=== PATIENT | female | born 1995 | race African-American/Black ===

== ENCOUNTER 2019-02-08 09:26 | Inpatient (IN) ==
[2019-02-08] MEDS ORDERED: Famotidine 20 MG/2 ML VIAL IVP ONE (09:44)
[2019-02-08] MEDS ORDERED: Metoclopramide 10 MG/2 ML VIAL IVP ONE (09:44)
[2019-02-08] MEDS ORDERED: CeFAZolin Syr 3,000MG/30 ML 3,000 MG/30 ML SYRINGE IVPB ONE (09:44)
[2019-02-08] MEDS ORDERED: Ringers Solution, Lactated 1,000 ML IVC ONE (09:44)
[2019-02-08] MEDS ORDERED: Oxytocin 20 units/ LR 1000 mL 20 UNIT/1,000 ML BAG IVC ONE (09:44)
[2019-02-08] MEDS ORDERED: Ringers Solution, Lactated 1,000 ML IVC SCH (09:45)
[2019-02-08] MEDS ORDERED: Oxytocin 20 units/ LR 1000 mL 20 UNIT/1,000 ML BAG IVC SCH ×2 (09:45→17:04)
[2019-02-08 10:24] LABS: Basophils % 0.2 %; Eosinophils # 0.1 K/mcL (0.0-0.6); Eosinophils % 0.8 %; Hematocrit 35.7 % (35.3-44.9); Hemoglobin 11.3 g/dL (11.5-15.4); Immature Granulocytes % 0.7 % (0-4); Lymphocytes # 2.3 K/mcL (0.6-4.6); Lymphocytes % 18.4 %; Mean Corpuscular HGB Conc 31.7 g/dL (31.6-35.5); Mean Corpuscular Hemoglobin 24.6 pg (28.0-33.3); Mean Corpuscular Volume 77.6 fL (83.0-100.0); Mean Platelet Volume 10.5 fL (9.4-12.4); Monocytes # 0.7 K/mcL (0.0-1.3); Monocytes % 5.8 %; Neutrophils # 9.4 K/mcL (1.6-8.9); Platelet Count 308 K/mcL (140-400); Red Cell Distribution Width 13.8 % (11.5-14.5); Segmented Neutrophils % 74.1 %; White Blood Count 12.7 K/mcL (4.3-11.1)
[2019-02-08] MEDS ORDERED: Ringers Solution, Lactated 1,000 ML ONE (10:29)
[2019-02-08] MEDS ORDERED: *HR* Phenylephrine 10 MG/ML VIAL ONE (10:29)
[2019-02-08] MEDS ORDERED: *HR* Oxytocin 10 UNIT/ML VIAL IM ONE (10:29)
[2019-02-08] MEDS ORDERED: *HR* FentaNYL (PF) 100 MCG/2 ML VIAL ONE ×2 (10:30→12:21)
[2019-02-08] MEDS ORDERED: *HR* Morphine Sulfate/PF 10 MG/10 ML AMPUL ONE (10:30)
[2019-02-08] MEDS ORDERED: EPHEDrine 50 MG/ML VIAL ONE (10:31)
[2019-02-08 10:34] LABS: Amphetamine Screen,Urine Negative ng/mL (Cutoff=1000); Barbiturate Screen,Urine Negative ng/mL (Cutoff=200); Benzodiazepines Screen,Urine Negative ng/mL (Cutoff=200); Cannabinoid Screen,Urine Negative ng/mL (Cutoff = 50); Cocaine Screen,Urine Negative ng/mL (Cutoff= 300); Opiate Screen,Urine Negative ng/mL (Cutoff=300); Phencyclidine Screen,Urine Negative ng/mL (Cutoff=25)
[2019-02-08] MEDS ORDERED: *HR* Midazolam HCl 2 MG/2 ML VIAL ONE (11:07)
[2019-02-08] MEDS ORDERED: Ondansetron 4 MG/2 ML VIAL ONE (11:34)
[2019-02-08] MEDS ORDERED: *HR* Labetalol 20 MG/4 ML SYRINGE IVP ONE (12:42)
[2019-02-08 14:19] LABS: Alanine Aminotransferase 12 Units/L (7-52); Aspartate Amino Transferase 15 Units/L (13-39); BUN/Creatinine Ratio 11 (6-26); Blood Urea Nitrogen 7 mg/dL (6-20); Lactate Dehydrogenase 163 Units/L (140-271); Uric Acid 5.6 mg/dL (2.3-7.6); eGFR For African Americans > 60 (> 60); eGFR For Non-African Americans > 60 (> 60)
[2019-02-08] MEDS ORDERED: Ondansetron 4 MG/2 ML VIAL IVP PRN (17:04)
[2019-02-08] MEDS ORDERED: Sennosides 8.6 MG TABLET PO PRN (17:04)
[2019-02-08] MEDS ORDERED: Simethicone 80 MG TAB.CHEW PO PRN (17:04)
[2019-02-08] MEDS ORDERED: Metoclopramide 10 MG/2 ML VIAL IVP PRN (17:04)
[2019-02-08] MEDS ORDERED: Rho Immune Globulin 1,500 UNIT SYRINGE IM ONE (17:04)
[2019-02-08] MEDS ORDERED: *HR* Nalbuphine 10 MG/ML AMPUL IV PRN (19:43)
[2019-02-08] MEDS: Ibuprofen 600 MG TABLET PO PRN (22:04)
[2019-02-09] MEDS: Ibuprofen 600 MG TABLET PO PRN ×3 (05:31→21:29)
[2019-02-09 05:54] LABS: Basophils % 0.2 %; Eosinophils % 0.2 %; Hematocrit 31.5 % (35.3-44.9); Hemoglobin 9.9 g/dL (11.5-15.4); Immature Granulocytes % 0.5 % (0-4); Lymphocytes # 1.6 K/mcL (0.6-4.6); Lymphocytes % 9.9 %; Mean Corpuscular HGB Conc 31.4 g/dL (31.6-35.5); Mean Corpuscular Hemoglobin 24.4 pg (28.0-33.3); Mean Corpuscular Volume 77.8 fL (83.0-100.0); Mean Platelet Volume 10.7 fL (9.4-12.4); Monocytes # 1.2 K/mcL (0.0-1.3); Monocytes % 7.3 %; Neutrophils # 13.1 K/mcL (1.6-8.9); Platelet Count 260 K/mcL (140-400); Red Blood Count 4.05 M/mcL (3.82-4.97); Red Cell Distribution Width 13.8 % (11.5-14.5); Segmented Neutrophils % 81.9 %
[2019-02-09] MEDS ORDERED: Rho Immune Globulin 1,500 UNIT SYRINGE IM ONE (08:14)
[2019-02-09] MEDS: Prenatal Vit/FA 1 EACH TABLET PO SCH (08:17)
[2019-02-09] MEDS ORDERED: NON-FORMULARY MEDICATION 1 EACH EACH (Prenatal Vitamin Tablet 1 TAB) PO SCH (09:00)
[2019-02-09] MEDS: *HR* OxyCODONE/APAP 5/325 TABLET PO PRN (11:37)
[2019-02-09 22:14] VITALS: BP 115/70
[2019-02-10] MEDS: Ibuprofen 600 MG TABLET PO PRN (08:20)
[2019-02-10] MEDS: Prenatal Vit/FA 1 EACH TABLET PO SCH (08:20)
[2019-02-10] MEDS: *HR* OxyCODONE/APAP 5/325 TABLET PO PRN (09:26)
== END 2019-02-10 11:16 | disposition home or self-care (01) | DRG 787 ==
LOC: 1NENULAB 09:26 → 1NENUOBS 16:21
PROVIDERS: ADMIT Obstetrics & Gynecology; ATTEND Obstetrics & Gynecology

== ENCOUNTER 2020-05-09 08:01 | Observation (INO) ==
[2020-05-09] MEDS ORDERED: 0.9 % Sodium Chloride 1,000 ML IVC ONE (08:08)
[2020-05-09 08:34] LABS: Basophils % 0.3 %; Eosinophils # 0.1 K/mcL (0.0-0.6); Eosinophils % 1.2 %; Hematocrit 38.8 % (35.3-44.9); Hemoglobin 12.4 g/dL (11.5-15.4); Immature Granulocytes % 0.3 % (0-4); Lymphocytes # 2.1 K/mcL (0.6-4.6); Mean Corpuscular Volume 78.2 fL (83.0-100.0); Mean Platelet Volume 9.5 fL (9.4-12.4); Monocytes # 0.5 K/mcL (0.0-1.3); Monocytes % 5.2 %; Neutrophils # 5.9 K/mcL (1.6-8.9); Platelet Count 291 K/mcL (140-400); Red Blood Count 4.96 M/mcL (3.82-4.97); Red Cell Distribution Width 15.2 % (11.5-14.5); White Blood Count 8.6 K/mcL (4.3-11.1)
[2020-05-09 08:36] LABS: Bilirubin,Urine Negative (Negative); Blood,Urine Moderate (Negative); Clarity,Urine Clear (Clear); Color,Urine Yellow (Yellow); Glucose,Urine (UA) Normal (Normal); Ketones,Urine Negative (Negative); Leukocyte Esterase,Urine Negative (Negative); Nitrite,Urine Negative (Negative); PH,Urine 7.5 pH Units (5.0-8.0); Protein,Urine Negative (Neg-Trace); Specific Gravity,Urine 1.015 (1.010-1.025); Urobilinogen,Urine Normal (Normal)
[2020-05-09 08:43] LABS: Bacteria,Urine Few per hpf (None-Few); RBC,Urine 0-3 per hpf (0-3); Squamous Epithelial Cell,Urine Few per hpf (None-Few); WBC,Urine 0-3 per hpf (0-3)
[2020-05-09 08:54] LABS: BUN/Creatinine Ratio 12 (6-26); Blood Urea Nitrogen 6 mg/dL (6-20); Calcium 9.4 mg/dL (8.6-10.3); Carbon Dioxide 22 mEq/L (23-29); Chloride 106 mEq/L (98-107); Glucose 97 mg/dL (70-105); Osmolality,Calculated 280 (280-300); Potassium 3.8 mEq/L (3.5-5.1); Sodium 136 mEq/L (136-145); eGFR For African Americans > 60 (> 60); eGFR For Non-African Americans > 60 (> 60)
[2020-05-09] MEDS ORDERED: *HR* OxyCODONE/APAP 5/325 TABLET PO ONE (10:01)
[2020-05-09] MEDS ORDERED: Rho Immune Globulin 1,500 UNIT SYRINGE IM ONE ×2 (11:08→13:46)
[2020-05-09 11:37] VITALS: BP 123/79
[2020-05-09] MEDS ORDERED: Ondansetron 4 MG/2 ML VIAL IVP PRN (11:51)
[2020-05-09] MEDS ORDERED: Ibuprofen 600 MG TABLET PO PRN (11:51)
[2020-05-09] MEDS ORDERED: Ringers Solution, Lactated 1,000 ML ONE (14:22)
[2020-05-09] MEDS ORDERED: Ringers Solution, Lactated 1,000 ML IVC SCH (14:30)
[2020-05-09] MEDS ORDERED: *HR* OxyCODONE Immed Rel 5 MG TABLET PO PRN (15:14)
[2020-05-09] MEDS ORDERED: *HR* Promethazine 25 MG/ML VIAL IVP PRN (15:14)
[2020-05-09] MEDS ORDERED: *HR* Midazolam HCl 2 MG/2 ML VIAL ONE (16:39)
[2020-05-09] MEDS ORDERED: *HR* Propofol 200 MG/20 ML VIAL IVP ONE (16:40)
[2020-05-09] MEDS ORDERED: *HR* FentaNYL (PF) 100 MCG/2 ML VIAL ONE (16:40)
[2020-05-09] MEDS ORDERED: Lidocaine -MPF 2% 5 ML VIAL ONE (16:41)
[2020-05-09] MEDS ORDERED: *HR* Succinylcholine 200 MG/10 ML VIAL IVP ONE (16:41)
[2020-05-09] MEDS ORDERED: Ketorolac 30 MG/ML VIAL ONE (17:03)
[2020-05-09] MEDS ORDERED: Ondansetron 4 MG/2 ML VIAL ONE (17:04)
[2020-05-09] MEDS ORDERED: Dexamethasone 4 MG/ML VIAL ONE (17:04)
[2020-05-09] MEDS ORDERED: Acetaminophen IV 1,000 MG/100 ML INFUS..BTL ONE (17:38)
[2020-05-09] MEDS ORDERED: Methylergonovine 0.2 MG/ML AMPUL IM ONE (19:34)
== END 2020-05-09 19:35 | disposition home or self-care (01) ==
LOC: EMEROOARM 08:01 → 1NENULAB 08:01
PROVIDERS: ADMIT Obstetrics & Gynecology; ATTEND Obstetrics & Gynecology

== ENCOUNTER 2020-05-10 22:06 | Observation (INO) ==
[2020-05-10 22:31] LABS: Basophils % 0.2 %; Eosinophils % 0.3 %; Hematocrit 27.9 % (35.3-44.9); Immature Granulocytes % 0.4 % (0-4); Lymphocytes # 1.7 K/mcL (0.6-4.6); Mean Corpuscular HGB Conc 31.5 g/dL (31.6-35.5); Mean Corpuscular Hemoglobin 25.1 pg (28.0-33.3); Mean Corpuscular Volume 79.5 fL (83.0-100.0); Mean Platelet Volume 9.7 fL (9.4-12.4); Monocytes # 0.6 K/mcL (0.0-1.3); Monocytes % 4.7 %; Neutrophils # 10.3 K/mcL (1.6-8.9); Platelet Count 228 K/mcL (140-400); Red Blood Count 3.51 M/mcL (3.82-4.97); Red Cell Distribution Width 15.2 % (11.5-14.5); Segmented Neutrophils % 81.4 %; White Blood Count 12.7 K/mcL (4.3-11.1)
[2020-05-10 22:32] LABS: Hemoglobin 8.8 g/dL (11.5-15.4)
[2020-05-10 22:41] LABS: INR 1.1; Prothrombin Time 12.1 Seconds (9.4-12.1)
[2020-05-10 22:55] LABS: BUN/Creatinine Ratio 17 (6-26); Blood Urea Nitrogen 8 mg/dL (6-20); Calcium 8.2 mg/dL (8.6-10.3); Carbon Dioxide 22 mEq/L (23-29); Chloride 108 mEq/L (98-107); Glucose 128 mg/dL (70-105); Osmolality,Calculated 290 (280-300); Potassium 3.5 mEq/L (3.5-5.1); Sodium 140 mEq/L (136-145); eGFR For African Americans > 60 (> 60); eGFR For Non-African Americans > 60 (> 60)
[2020-05-11] MEDS ORDERED: miSOPROStoL 100 MCG TABLET PO ONE (00:54)
[2020-05-11] MEDS ORDERED: Ondansetron 4 MG/2 ML VIAL IVP PRN (04:58)
[2020-05-11] MEDS ORDERED: Naloxone 0.4 MG/ML INJ IVP PRN (04:58)
[2020-05-11] MEDS ORDERED: Ringers Solution, Lactated 1,000 ML IVC SCH (05:00)
[2020-05-11] MEDS ORDERED: Ringers Solution, Lactated 1,000 ML IVC ONE (05:00)
[2020-05-11 05:05] VITALS: BP 111/72
[2020-05-11 06:01] LABS: Basophils % 0.4 %; Eosinophils # 0.1 K/mcL (0.0-0.6); Eosinophils % 0.7 %; Hematocrit 28.8 % (35.3-44.9); Hemoglobin 8.9 g/dL (11.5-15.4); Immature Granulocytes % 0.4 % (0-4); Lymphocytes # 2.9 K/mcL (0.6-4.6); Lymphocytes % 25.8 %; Mean Corpuscular HGB Conc 30.9 g/dL (31.6-35.5); Mean Corpuscular Hemoglobin 24.9 pg (28.0-33.3); Mean Corpuscular Volume 80.7 fL (83.0-100.0); Monocytes # 0.6 K/mcL (0.0-1.3); Monocytes % 4.9 %; Neutrophils # 7.7 K/mcL (1.6-8.9); Platelet Count 260 K/mcL (140-400); Red Blood Count 3.57 M/mcL (3.82-4.97); Red Cell Distribution Width 15.2 % (11.5-14.5); Segmented Neutrophils % 67.8 %; White Blood Count 11.3 K/mcL (4.3-11.1)
[2020-05-11 06:21] LABS: Alanine Aminotransferase 8 Units/L (7-52); Albumin 3.5 g/dL (3.5-5.7); Albumin/Globulin Ratio 1.2 (1.1-2.2); Alkaline Phosphatase 76 Units/L (34-104); Aspartate Amino Transferase 10 Units/L (13-39); BUN/Creatinine Ratio 14 (6-26); Bilirubin,Total 0.2 mg/dL (0.3-1.0); Blood Urea Nitrogen 7 mg/dL (6-20); Calcium 8.4 mg/dL (8.6-10.3); Carbon Dioxide 27 mEq/L (23-29); Chloride 105 mEq/L (98-107); Glucose 85 mg/dL (70-105); Magnesium 1.5 mg/dL (1.6-2.6); Osmolality,Calculated 281 (280-300); Potassium 3.6 mEq/L (3.5-5.1); Sodium 137 mEq/L (136-145); Total Protein 6.5 g/dL (6.4-8.9); eGFR For African Americans > 60 (> 60); eGFR For Non-African Americans > 60 (> 60)
== END 2020-05-11 10:02 | disposition home or self-care (01) ==
LOC: 3NENU 22:06 → EMEROOARM 22:06 → 3NENU 05-11 04:42
PROVIDERS: ADMIT Family Medicine; ATTEND Family Medicine

== ENCOUNTER 2021-04-20 20:35 | Inpatient (IN) ==
[2021-04-20 22:26] LABS: Influenza A PCR Negative (Negative); Influenza B PCR Negative (Negative); Resp. Syncytial Virus PCR Negative (Negative)
[2021-04-20 22:33] LABS: SARS-CoV-2 by PCR (In House) Negative (Negative)
[2021-04-21] MEDS ORDERED: Metoclopramide 10 MG/2 ML VIAL IVP PRN ×2 (06:18→14:24)
[2021-04-21] MEDS ORDERED: Famotidine 20 MG/2 ML VIAL IVP PRN (06:18)
[2021-04-21] MEDS ORDERED: Azithromycin 500 MG in 0.9 % Sodium Chloride 250 ML IVPB PRN (06:18)
[2021-04-21] MEDS ORDERED: Naloxone 0.4 MG/ML INJ IVP PRN (06:18)
[2021-04-21] MEDS ORDERED: Ringers Solution, Lactated 1,000 ML ONE ×2 (06:25→14:42)
[2021-04-21 06:39] LABS: Basophils % 0.4 %; Hematocrit 32.4 % (35.3-44.9); Hemoglobin 9.5 g/dL (11.5-15.4); Immature Granulocytes % 0.4 % (0-4); Lymphocytes % 22.6 %; Mean Corpuscular HGB Conc 29.3 g/dL (31.6-35.5); Mean Corpuscular Hemoglobin 21.2 pg (28.0-33.3); Mean Corpuscular Volume 72.2 fL (83.0-100.0); Monocytes % 6.3 %; Platelet Count 297 K/mcL (140-400); Red Blood Count 4.49 M/mcL (3.82-4.97); Red Cell Distribution Width 14.5 % (11.5-14.5); Segmented Neutrophils % 69.3 %; White Blood Count 11.6 K/mcL (4.3-11.1)
[2021-04-21 06:40] LABS: Basophils # 0.1 K/mcL (0.0-0.2); Eosinophils # 0.1 K/mcL (0.0-0.6); Lymphocytes # 2.6 K/mcL (0.6-4.6); Monocytes # 0.7 K/mcL (0.0-1.3)
[2021-04-21] MEDS ORDERED: Oxytocin 20 units/ LR 1000 mL 20 UNIT/1,000 ML BAG IVC ONE ×2 (07:26→10:19)
[2021-04-21] MEDS: Ringers Solution, Lactated 1,000 ML IVC SCH ×2 (07:33→13:02)
[2021-04-21] MEDS ORDERED: CeFAZolin Syr 3,000MG/30 ML 3,000 MG/30 ML SYRINGE IVPB ONE (09:00)
[2021-04-21 09:16] LABS: Amphetamine Screen,Urine Negative ng/mL (Cutoff=1000); Barbiturate Screen,Urine Negative ng/mL (Cutoff=200); Benzodiazepines Screen,Urine Negative ng/mL (Cutoff=200); Cannabinoid Screen,Urine Negative ng/mL (Cutoff = 50); Cocaine Screen,Urine Negative ng/mL (Cutoff= 300); Opiate Screen,Urine Negative ng/mL (Cutoff=300); Phencyclidine Screen,Urine Negative ng/mL (Cutoff=25)
[2021-04-21] MEDS ORDERED: *HR* Nalbuphine 10 MG/ML AMPUL IV PRN (09:50)
[2021-04-21] MEDS ORDERED: Ondansetron 4 MG/2 ML VIAL IVP STA (11:03)
[2021-04-21] MEDS ORDERED: Ondansetron 4 MG/2 ML VIAL ONE (11:13)
[2021-04-21] MEDS ORDERED: Simethicone 80 MG TAB.CHEW PO PRN (14:24)
[2021-04-21] MEDS ORDERED: Ringers Solution, Lactated 1,000 ML IVC SCH (14:24)
[2021-04-21] MEDS ORDERED: Ondansetron 4 MG/2 ML VIAL IVP PRN (14:24)
[2021-04-21] MEDS ORDERED: Rho Immune Globulin 1,500 UNIT SYRINGE IM ONE (14:24)
[2021-04-21] MEDS: Acetaminophen 325 MG TABLET PO SCH ×2 (15:10→17:15)
[2021-04-21] MEDS: Oxytocin 20 units/ LR 1000 mL 20 UNIT/1,000 ML BAG IVC SCH ×2 (15:10→19:56)
[2021-04-21] MEDS: Prenatal Vit/FA 1 EACH TABLET PO SCH (15:10)
[2021-04-21] MEDS: Ibuprofen 600 MG TABLET PO SCH (17:15)
[2021-04-21] MEDS: *HR* OxyCODONE/APAP 5/325 TABLET PO PRN (20:20)
[2021-04-22] MEDS: Acetaminophen 325 MG TABLET PO SCH ×3 (00:23→12:23)
[2021-04-22] MEDS: Ibuprofen 600 MG TABLET PO SCH ×3 (00:23→12:23)
[2021-04-22] MEDS ORDERED: *HR* Enoxaparin 40 MG/0.4 ML SYRINGE SQ SCH (06:00)
[2021-04-22 07:47] LABS: Basophils % 0.4 %; Eosinophils # 0.1 K/mcL (0.0-0.6); Eosinophils % 0.8 %; Hemoglobin 8.4 g/dL (11.5-15.4); Immature Granulocytes % 0.4 % (0-4); Lymphocytes # 1.9 K/mcL (0.6-4.6); Lymphocytes % 17.1 %; Mean Corpuscular Hemoglobin 21.9 pg (28.0-33.3); Mean Corpuscular Volume 73.1 fL (83.0-100.0); Mean Platelet Volume 10.9 fL (9.4-12.4); Monocytes # 0.9 K/mcL (0.0-1.3); Monocytes % 7.9 %; Neutrophils # 8.1 K/mcL (1.6-8.9); Platelet Count 262 K/mcL (140-400); Red Blood Count 3.83 M/mcL (3.82-4.97); Red Cell Distribution Width 14.5 % (11.5-14.5); Segmented Neutrophils % 73.4 %
[2021-04-22 07:50] VITALS: BP 113/72; PULSE 92; TEMP 98.6; O2SAT 98
[2021-04-22] MEDS: Prenatal Vit/FA 1 EACH TABLET PO SCH (07:56)
[2021-04-22] MEDS: *HR* OxyCODONE/APAP 5/325 TABLET PO PRN (07:56)
== END 2021-04-22 14:35 | disposition home or self-care (01) | DRG 540 ==
LOC: 1NENULAB → OBSVTOIN 20:35 → 1NENULAB 04-21 01:52 → 1NENUOBS 04-21 12:00
PROVIDERS: ADMIT Obstetrics & Gynecology; ATTEND Obstetrics & Gynecology